=== PATIENT | female | born 1980 | race Hispanic/Latino ===

== ENCOUNTER 2021-04-01 19:09 | Emergency (ER) | payer SELFPAY ==
[~2021-04-01] VITALS: Ht 154.9 cm; Wt 104.8 kg
[~2021-04-01 19:09] MED LIST: PRAVASTATIN SOD40 MG
[2021-04-01] MEDS ORDERED: CEFDINIR300 MG PO (20:23)
[2021-04-01] MEDS ORDERED: MEDROL4 MG PO (20:23)
[2021-04-01] MEDS ORDERED: GUAIFEN-CODEINE5 ML PO (20:26)
[2021-04-01] MEDS ORDERED: VENTOLIN HFA18 GM INH (20:30)
[2021-04-01] MEDS ORDERED: ALBUTEROL/IPRATROPIUM 3 ML NEB NEB ONE (20:30)
== END 2021-04-01 21:14 | disposition home or self-care (01) ==
LOC: FSED 21:04
DX: R05 Cough (principal); J20.9 Acute bronchitis, unspecified; I10 Essential (primary) hypertension
CPT/HCPCS: 99283